=== PATIENT | female | born 1990 | race Caucasian/White ===

== ENCOUNTER 2024-07-20 07:56 | Observation (INO) | payer OTHER, SELFPAY ==
[2024-07-20 08:30] VITALS: BP 102/53; PULSE 104
[2024-07-20 09:01] VITALS: BMI 20.6
--- NOTE | 2024-07-20 09:05 | OBADM ---
This patient, Lucrecia Latham, admitted to the OB room [facility] for observation. Patient/family oriented to hospital policies and general routines including ID bracelet, bed and alarms, visiting hours, pain management, procedures, bathroom and other care routines, personal items, smoking policy, room service/diet, and visiting hours. Patient/Family are encouraged to report perceived risks to care and to ask questions if they do not understand what they are told or what they should do.
--- NOTE | 2024-07-20 09:06 | PC.NURSE ---
Dr Hughes notified of patient c/o L rib pain after sneezing. OK to dc home and have patient take tylenol and followup with primary MD. Patient may go to ER for evaluation if she wishes.
[2024-07-20 10:00] LABS: Add Urine Microscopic? YES; Appearance Urine Clear (Clear); Bacteria Urine None Seen /hpf; Bilirubin Urine Negative (Negative); Blood Urine Negative (Negative); Color Urine Yellow (Yellow); Glucose Urine UA Negative (Negative); Ketones Urine Negative (Negative); Leukocyte Esterase Ur Trace LEU/UL (Negative); Nitrate Urine Negative (Negative); Non Pathogenic Casts 0-2; Protein Urine Negative (Negative); RBC Urine 0-2 /hpf (0-2); Specific Grav Ur 1.019 (1.001-1.035); Squamous Epithelial Cell Urine None Seen /hpf (Few); WBC Urine 0-5 /hpf (0-3); pH Urine 8.5 (5.0-9.0)
--- NOTE | 2024-07-23 08:55 | PM.OBTRLD ---
OB - Triage/Final Diagnosis Visit Information Reason for evaluation: threatened labor Comments/Additional reasons for admission: I have assessed the risk for this patient, Lucrecia Latham, and determined that she would benefit from observation care. Evaluation Laboratory results: Laboratory Tests 07/20/24 09:41 Urine Color Yellow Urine Appearance Clear Urine pH 8.5 Ur Specific [place] 1.019 Urine Protein Negative Urine Glucose (UA) Negative Urine Ketones Negative Ur Blood (Man) Negative Urine Nitrate Negative Urine Bilirubin Negative Urine Urobilinogen 1.0 Ur Leukocyte Esterase Trace H Urine RBC 0-2 Urine WBC 0-5 Ur Squamous Epith Cells None seen Urine Bacteria None seen Urine Casts 0-2
== END 2024-07-20 09:35 | disposition home or self-care (01) ==
PROVIDERS: Admitting Provider Obstetrics & Gynecology; PCP Family Medicine; Visit Provider Obstetrics & Gynecology
DX: O99.891 Other specified diseases and conditions complicating pregnancy (principal); S22.32XA Fracture of one rib, left side, initial encounter for closed fracture; O99.012 Anemia complicating pregnancy, second trimester; D64.9 Anemia, unspecified; O99.282 Endocrine, nutritional and metabolic diseases complicating pregnancy, second trimester; E88.09 Other disorders of plasma-protein metabolism, not elsewhere classified; E87.1 Hypo-osmolality and hyponatremia; Z3A.26 26 weeks gestation of pregnancy
CPT/HCPCS: 81001; 87086; G0378; G0379

== ENCOUNTER 2024-07-20 09:36 | Emergency (ER) | payer OTHER, SELFPAY ==
--- NOTE | ~2024-07-20 | XR_ITS ---
EXAMINATION: XR ribs LT 2V w CXR 2V DATE: 07/20/2024 12:48 INDICATION: Left rib pain. TECHNIQUE: Frontal and lateral views of the chest and 2 views on 3 radiographs of the left ribs were obtained. COMPARISON: Chest 2 views 07/19/2012 FINDINGS: CHEST TWO VIEWS: There is no pneumonia, pleural effusion, or pneumothorax. The heart size is normal. LEFT RIBS: There is a fracture deformity of left sixth rib. IMPRESSION: 1. Age-indeterminate fracture of left sixth rib. Reviewed, dictated and finalized at location A. RESTORER
[2024-07-20 09:40] VITALS: BP 97/57; PULSE 87; RESP 17; TEMP 36.5; O2SAT 100
[2024-07-20 10:18] VITALS: RESP 18
--- NOTE | 2024-07-20 10:33 | ED_ITS ---
HPI - General Adult General Chief complaint: Unspecified Stated complaint: L sided rib pain, 26 weeks cleared by OB Time Seen by Provider: 07/20/24 09:52 Source: patient Mode of arrival: ambulatory Limitations: no limitations History of Present Illness HPI narrative: female at stated 26 weeks gestational age presents with complaint of left sided rib pain. Patient had already reportedly been to labor and d elivery/evaluated by ObGn and assessment performed, reportedly normal. Her ObGyn is Dr Sanchez through [facility]. The pain has been present wince 07/15 but acutely worsened today which she sneezed and she heard a pop and the pain intensified. She had attibuted some of the earlier pain to sleeping like a rock and laying on one side too long given that she can only really get comfortable in 2 positions. She has had a cough that has lingered over the past week or so. Had not yet taken anything for pain today. No history of hemoptysis or prior DVT/PE. No recent travel. No fever or chills. Gets pain with deep inspiration. The pain currently is constant but manageable if she stays still, worse with movement. No barb chest pain or shortness of breath. Notes that her blood pressure is often low. Has a history of sudden onset pre-eclampsia during a previous during which her liver enzymes were very elevated and for that reason she had been told to avoid acetaminophen. Related Data Allergies Allergy/AdvReac Type Severity Reaction Status Date / Time Penicillins Allergy Mild Unknown Verified 07/20/24 13:38 [facility] Past Medical History Medical History (Updated 07/20/24 @ 22:32 by Melly Ramos MD) History of pre-eclampsia in prior , currently History of premature delivery, currently Hx 36wk gestational age fetus Social History Social History Living arrangements: with family Occupation/Education: occupation Exam Narrative: GENERAL: Well-appearing, well-nourished, and in no acute distress. HEAD: Normocephalic, atraumatic. EYES: Non injected, non icteric ENT: Nares clear, no rhinorrhea or epistaxis. NECK: Supple. CHEST: Speaking in full sentences. No respiratory distress. Lungs clear to auscultation bilaterally without wheezes/crackles/consolidation, not diminished. No subcutaneous emphysema. Point tenderness along left lateral aspect of chest. HEART: Regular rate and rhythm. . ABDOMEN: Soft, nondistended. EXTREMITIES: Normal range of motion. No bilateral or unilateral lower extremity edema. SKIN: Warm, dry, no rash, particularly on exposed skin and including along left chest /around and lateral to left breast - nothing vesicular/zoster in appearance and no ecchymosis NEURO: No focal deficits. Alert and oriented x3. PSYCH: Normal mood and affect. Course Vital Signs Vital signs: Vital Signs Temperature 97.7 F 07/20/24 09:40 Pulse Rate 87 07/20/24 09:40 Respiratory Rate 17 07/20/24 09:40 Blood Pressure 97/57 L 07/20/24 09:40 Pulse Oximetry 100 07/20/24 09:40 Oxygen Delivery Room Air 07/20/24 09:40 Temperature 97.7 F 07/20/24 09:40 Pulse Rate 87 07/20/24 09:40 Respiratory Rate 18 07/20/24 10:18 Blood Pressure 97/57 L 07/20/24 09:40 Pulse Oximetry 100 07/20/24 09:40 Oxygen Delivery Room Air 07/20/24 09:40 Medical Decision Making MDM Narrative Medical decision making narrative: Patient presents with left lateral chest pain/left sided rib pain. She has had a cough that has lingered recently and developed this pain on 07/15/24 but with acute worsening today when she sneezed and heard a pop. In the emergency department she is afebrile vital signs notable for hypotension though with MAP 70mmHg. Patient states her low blood pressure is chronic/normal. YEARS Algorithm : Yes Clinical signs of DVT: No Hemoptysis: No PE is most likely diagnosis: No D-dimer >1000ng/mL: No Result: PE Excluded (0.43% with symptomatic VTE during 3 month follow up). Pseudo hypocalcemia that corrects to normal 8.4mg/dL in the setting of hypoalbuminemia. Hyponatremia, no prior for comparison. Notably, patient's LFTs are normal though she states she has a history of them being markedly elevated with history of pre-eclampsia. Normocytic anemia no prior for comparison. Patient does have evidence of isolated rib fracture (left #6). Patient to be given an incentive spirometer. We discussed the importance of deep breaths to reduce likelihood of PNA due to splinting. She and partner verify understanding. Will prescribe expectorant but avoid cough suppressant medication at this time. While I do believe acetaminophen is likely safe to take given LFTs are normal, she states she discussed with her ObGyn who recommend she continue to avoid this and recommended Flexeril. First dose given in the ED with the rest of the course prescribed though I did recommend that she share the results of her LFTs with ObGyn moving forward to see if it would be a PRN medication that she could possibly feel more comfortable re-introducing. Differential Diagnosis Differential Diagnosis: acute viral syndrome, ACS, pneumonia, rib fracture, PTX, pumonary embolism; zoster Vital Signs Vital Signs: Vital Signs Temperature 97.7 F 07/20/24 09:40 Pulse Rate 87 07/20/24 09:40 Respiratory Rate 17 07/20/24 09:40 Blood Pressure 97/57 L 07/20/24 09:40 Pulse Oximetry 100 07/20/24 09:40 Oxygen Delivery Room Air 07/20/24 09:40 Temperature 97.7 F 07/20/24 09:40 Pulse Rate 87 07/20/24 09:40 Respiratory Rate 18 07/20/24 10:18 Blood Pressure 97/57 L 07/20/24 09:40 Pulse Oximetry 100 07/20/24 09:40 Oxygen Delivery Room Air 07/20/24 09:40 Lab Data Lab results reviewed: Yes I reviewed the patient's lab results. 07/20/24 11:06 07/20/24 11:06 Labs: Lab Results 07/20/24 Range/Units 11:06 WBC 9.0 (4.5-10.0) K/mm3 RBC 3.63 L (4.2-5.4) M/mm3 Hgb 11.6 L (12.0-15.0) g/dL Hct 33.7 L (37.0-47.0) % MCV 92.8 (80-100) fl MCH 32.0 (26-34) pg MCHC 34.4 (32-36) g/dl RDW 13.9 (11.5-14.5) % Plt Count 262 (150-375) k/mm3 MPV 9.3 (7.4-10.4) fl Immature Gran % (Auto) 0.6 H (0-0.5) % Neut % (Auto) 72.6 (45.5-73.1) % Lymph % (Auto) 21.1 (18.3-44.2) % Dukes % (Auto) 4.6 (2.6-8.5) % Eos % (Auto) 0.7 (0-4.4) % Baso % (Auto) 0.4 (0.2-1.2) % Lymph # (Auto) 1.89 (0.9-3.2) K/mm3 Dukes # (Auto) 0.4 (0.1-0.6) K/mm3 Eos # (Auto) 0.1 (0-0.3) K/mm3 Baso # (Auto) 0.0 (0.0-0.1) K/mm3 Abs Immat Gran (auto) 0.05 H (0.00-0.031) K/mm3 Absolute Neuts (auto) 6.5 (1.3-6.7) K/mm3 Absolute Nucleated RBC 0.000 (0.0-0.012) K/mm3 Nucleated RBC % 0.0 (0.0-0.2) % D-Dimer 0.70 H (<0.48) ug/mL Sodium 132 L (137-145) mmol/L Potassium 3.8 (3.4-5.0) mmol/L Chloride 110 H (98-107) mmol/L Carbon Dioxide 22 (22-30) mmol/L Anion Gap 0 L (4-12) mmol/L BUN 8 (7-17) mg/dL Creatinine 0.40 L (0.7-1.0) mg/dL Estim Creat Clear Calc 114 ml/min Estimated GFR > 60 (59 - ) Glucose 95 (65-110) mg/dL Calcium 7.9 L (8.4-10.2) mg/dL Total Bilirubin 0.4 (0.2-1.3) mg/dL AST 21 (14-36) U/L ALT 14 (6-35) U/L Alkaline Phosphatase 100 (38-126) U/L Total Protein 6.0 L (6.3-8.2) g/dL Albumin 3.4 L (3.5-5.1) g/dL Influenza A (RT-PCR) Negative (Negative) Influenza B (RT-PCR) Negative (Negative) RSV (RT-PCR) Negative (Negative) SARS-CoV-2 RNA (RT-PCR) Negative (Negative) Imaging Data Radiologist's impression: Impressions Ribs w/Chest X-Ray 07/20/24 12:53 IMPRESSION: 1. Age-indeterminate fracture of left sixth rib. ECG Data EKG #1: Attestation: I personally reviewed and interpreted this ECG as follows: ECG completion date: 07/20/24 ECG completion time: 11:35 Interpretation: Normal sinus rhythm at a rate of 82 beats per minute. [place] interval 116. QRS 70 3p QT/QTC 371/409. Good R-wave progression across the precordial leads. Normal axis. No T-wave inversions. Discharge Plan Discharge Clinical Impression: Rib pain on left side, 26 weeks gestation of , Hypoalbuminemia, Hyponatremia, Normocytic anemia Left rib fracture Qualifiers: Encounter type: initial encounter Rib fracture type: single rib Fracture type: closed Qualified Code(s): S22.32XA - Fracture of one rib, left side, initial encounter for closed fracture Patient Disposition: Home, Self-Care Condition: Stable Instructions: Antibiotic Form, How to Use an Incentive Spirometer (ED), Rib Fracture (ED), Hyponatremia (ED), Anemia (ED), at 23 to 26 Weeks (ED) Additional Instructions: As we discussed, you have an isolated left-sided rib fracture to rib 6. Of note, your LFTs (liver function tests) were normal: AST, ALT, and alkaline phosphatase were 21, 14, and 100 respectively, so it would be my opinion that ac etaminophen/Tylenol could be taken however if your Ob Gyne is not recommending this and is instead recommending a muscle relaxer, that is also reasonable. This has been prescribed as well as an expectorant to help loosen the mucus. Use incentive spirometer or otherwise remember to take deep breaths to avoid developing pneumonia. 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 Return to the emergency department with any new or worsening symptoms. Prescriptions: New guaifenesin 100 mg/5 mL liquid 200 mg PO Q4H PRN (Reason: cough) Qty: 473 0RF cyclobenzaprine 7.5 mg tablet 7.5 mg PO BID PRN (Reason: muscle spasm) Qty: 10 0RF Follow-up/Referrals: [place]*R*,Geo Arredondo MD [Physician] - Stand Alone Forms: Work/School Release IP Time of Disposition: 13:23
--- NOTE | 2024-07-20 10:47 | ECG_ITS ---
Test Date: 2024-07-20 11:35:09 Measurements Intervals [place] Rate: 82 P: 49 TX: 116 QRS: 88 QRSD: 73 T: 57 QT: 371 QTc: 434 Interpretive Statements SINUS RHYTHM WITH SHORT TX INTERVAL No previous ECG available for comparison Electronically Signed On 07-20-2024 12:58:47 [employer] by Poncho Viera M.D.
[2024-07-20 11:11] LABS: Basophils Percent Auto 0.4 % (0.2-1.2); Eosinophils Absolute Auto 0.1 K/mm3 (0-0.3); Eosinophils Percent Auto 0.7 % (0-4.4); Hematocrit 33.7 % (37.0-47.0); Hemoglobin 11.6 g/dL (12.0-15.0); Immature Granulocyte Absolute 0.05 K/mm3 (0.00-0.031); Immature Granulocyte Percent A 0.6 % (0-0.5); Lymphocytes Absolute Auto 1.89 K/mm3 (0.9-3.2); Lymphocytes Percent Auto 21.1 % (18.3-44.2); Mean Corpuscular HGB Conc 34.4 g/dl (32-36); Mean Corpuscular Volume 92.8 fl (80-100); Mean Platelet Volume 9.3 fl (7.4-10.4); Monocytes Absolute Auto 0.4 K/mm3 (0.1-0.6); Monocytes Percent Auto 4.6 % (2.6-8.5); Neutrophils Absolute Auto 6.5 K/mm3 (1.3-6.7); Neutrophils Percent Auto 72.6 % (45.5-73.1); Platelet Count Result 262 k/mm3 (150-375); Red Blood Count 3.63 M/mm3 (4.2-5.4); Red Cell Distribution Width 13.9 % (11.5-14.5)
[2024-07-20 11:26] LABS: Alanine Aminotransferase 14 U/L (6-35); Albumin Level 3.4 g/dL (3.5-5.1); Alkaline Phosphatase 100 U/L (38-126); Anion Gap 0 mmol/L (4-12); Aspartate Amino Transferase 21 U/L (14-36); Bilirubin,Total 0.4 mg/dL (0.2-1.3); Blood Urea Nitrogen 8 mg/dL (7-17); Calcium 7.9 mg/dL (8.4-10.2); Carbon Dioxide 22 mmol/L (22-30); Chloride 110 mmol/L (98-107); Estimated CRCL calculation 114 ml/min; Estimated Glomerular Filt Rate > 60; Glucose 95 mg/dL (65-110); Potassium 3.8 mmol/L (3.4-5.0); Sodium 132 mmol/L (137-145)
[2024-07-20 11:51] LABS: Influenza A QL RT-PCR Negative (Negative); Influenza B QL RT-PCR Negative (Negative); RSV RNA, RT-PCR Negative (Negative); SARS-CoV-2 RNA PCR Negative (Negative)
[2024-07-20] MEDS: CYCLOBENZAPRINE HCL 10 MG TABLET PO (13:39)
[2024-07-20] MEDS: guaiFENesin/DEXTROMETHORPHAN 10 ML UDC PO (13:39)
== END 2024-07-20 14:28 | disposition home or self-care (01) ==
PROVIDERS: Emergency Provider Student in an Organized Health Care Education/Training Program
DX: O99.891 Other specified diseases and conditions complicating pregnancy (principal); S22.32XA Fracture of one rib, left side, initial encounter for closed fracture; Z3A.26 26 weeks gestation of pregnancy; X58.XXXA Exposure to other specified factors, initial encounter; E88.09 Other disorders of plasma-protein metabolism, not elsewhere classified; E87.1 Hypo-osmolality and hyponatremia; D64.9 Anemia, unspecified; Z20.822 Contact with and (suspected) exposure to COVID-19
CPT/HCPCS: 36415; 71046; 71100; 80053; 81001; 85025; 85380; 87086; 87637; 93005; 99283; A9270; G0378; G0379